=== PATIENT | male | born 1945 ===

== ENCOUNTER 2020-12-29 12:30 | Inpatient (IN) | payer OTHER ==
[~2020-12-29] VITALS: Ht 170.2 cm; Wt 78.5 kg
[2020-12-29] MEDS ORDERED: SINGULAIR10 MG PO (14:40)
[2020-12-29] MEDS ORDERED: MICARDIS80 MG PO (14:40)
[2020-12-29] MEDS ORDERED: PREDNISON PO (14:41)
[2020-12-29] MEDS ORDERED: SYMBICORT IH (14:41)
[2021-01-03] MEDS ORDERED: SYMBICORT 16010.2 GM (07:59)
[2021-01-03] MEDS ORDERED: FAMOTIDINE40 MG (07:59)
[2021-01-03] MEDS ORDERED: PROAIR HFA8.5 GM (07:59)
[2021-01-03] MEDS ORDERED: AZELASTINE205.5 MCG/ (07:59)
[2021-01-03] MEDS ORDERED: LEVOCETIRIZINE D5 MG (07:59)
[2021-01-03] MEDS ORDERED: KETOCONAZOLE15 GM (08:00)
[2021-01-03] MEDS ORDERED: LEVOFLOXACIN750 MG (08:00)
[2021-01-03] MEDS ORDERED: FLONASE16 GM (08:00)
[2021-01-03] MEDS ORDERED: PREDNISONE10 M2 (08:00)
== END 2021-01-06 15:35 | disposition home or self-care (01) | DRG 331 ==
LOC: O/R 01-03 05:49 → SURH 01-03 05:49
PROVIDERS: ADMIT Colon & Rectal Surgery; ATTEND Colon & Rectal Surgery
PROC: 0DTN4ZZ Resection of Sigmoid Colon, Percutaneous Endoscopic Approach (ICD-10-PCS; 2021-01-03)
PROC: 0DTP4ZZ Resection of Rectum, Percutaneous Endoscopic Approach (ICD-10-PCS; principal; 2021-01-03 07:00)
DX: K57.32 Diverticulitis of large intestine without perforation or abscess without bleeding (principal)